=== PATIENT | male | born 1945 | race Caucasian/White ===

== ENCOUNTER 2020-06-22 07:42 | Outpatient (CLI) | payer MEDICARE, BC, OTHER ==
[2020-06-22 14:28] LABS: #Basophils 0.1 thou/uL (0.0-0.2); #Eosinphils 0.4 thou/uL (0.0-0.7); #Lymphocytes 1.6 thou/uL (1.20-3.40); #Monocytes 0.7 thou/uL (0.11-0.59); #Neutrophils 5.2 thou/uL (1.40-6.50); %Basophils 0.8 % (0.0-1.0); %Eosinophils 4.9 % (0.0-10.0); %Lymphocytes 20.4 % (21.0-51.0); Hemoglobin 11.8 g/dL (14.0-18.0); Mean Corpuscular HGB CONC 31.4 g/dL (32.0-36.0); Mean Corpuscular Hemoglobin 31.9 pg (27.0-31.0); Mean Platelet Volume 6.3 fL (7.4-10.4); Platelet Count 281 thou/uL (130-400); RBC Distribution Width 14.5 % (11.5-14.5); Red Blood Cell (RBC) Count 3.69 mill/uL (4.70-6.10); White Blood Cell (WBC) Count 8.1 thou/uL (4.8-10.8)
[2020-06-22 15:07] LABS: ALT (SGPT) 19 U/L (8-55); AST (SGOT) 17 U/L (5-34); Albumin 4.4 g/dL (3.4-4.8); Alkaline Phosphatase 79 U/L (40-110); Anion Gap 16 mmol/L (10-20); BUN (Urea Nitrogen) 33 mg/dL (8.4-25.7); Bilirubin, Total 0.5 mg/dL (0.2-1.2); Calc. Creatinine Clearance 0 mL/min (70-130); Calcium 9.9 mg/dL (7.8-10.44); Carbon Dioxide 23 mmol/L (23-31); Chloride 101 mmol/L (98-107); Estimated GFR-MDRD 42; Globulin 2.5 g/dL (2.4-3.5); Glucose 114 mg/dL (83-110); Protein, Total 6.9 g/dL (5.8-8.1); Sodium 136 mmol/L (136-145)
[2020-06-23 13:45] LABS: SARS-CoV-2 MS2 Positive; SARS-CoV-2 N Gene Negative; SARS-CoV-2 S Gene Negative; SARS-CoV-2 by NAA Not Detected (NotDetected); SARS-CoV-2 orf1ab Negative
== END 2020-06-22 07:43 | disposition home or self-care (01) ==
LOC: LABBT 07:42
PROVIDERS: ATTEND Internal Medicine Cardiovascular Disease
DX: Z01.812 Encounter for preprocedural laboratory examination (principal); Z20.828 Contact with and (suspected) exposure to other viral communicable diseases
CPT/HCPCS: 80053; 85025; U0003; 87635

== ENCOUNTER 2020-06-27 06:07 | Inpatient (IN) | payer MEDICARE, BC ==
[2020-06-27] MEDS ORDERED: Heparin 10,000 UNITS/ 10 ML VIAL ONE (06:29)
[2020-06-27] MEDS ORDERED: Fentanyl 100 MCG/2 ML VIAL ONE (06:59)
[2020-06-27] MEDS ORDERED: Midazolam HCl 2 mg/2 ml Vial ONE (06:59)
[2020-06-27 07:07] LABS: Cardiac Risk 3.5 (Less than 4.5)
[2020-06-27] MEDS ORDERED: Protamine Sulfate 50 MG/5 ML VIAL ONE (07:29)
[2020-06-27] MEDS ORDERED: Acetaminophen/Codeine 30-300mg Tablet PO PRN ×2 (08:20)
[2020-06-27] MEDS ORDERED: Nitroglycerin 0.4 MG TAB (25 Tab Bottle) SL PRN (08:20)
[2020-06-27] MEDS ORDERED: Sodium Chloride 0.9% 1,000 ML IV SCH (08:20)
[2020-06-27] MEDS ORDERED: Clobetasol 0.05% Cream 15 gm Tube FS SCH (08:30)
[2020-06-27] MEDS ORDERED: clonazePAM 0.5 MG TAB PO PRN (08:32)
[2020-06-27] MEDS ORDERED: Cyclobenzaprine 10 MG TAB PO PRN (08:33)
[2020-06-27] MEDS ORDERED: Fluticasone Propionate Nasal Spray 16 gm Bottle NASAL PRN (08:36)
[2020-06-27] MEDS ORDERED: hydrOXYzine 10 MG TAB PO PRN (08:45)
[2020-06-27 09:28] VITALS: BMI 40.7
[2020-06-27] MEDS: Multivitamin W/ Minerals 1 TAB PO SCH (10:58)
[2020-06-27] MEDS: FLUTAMIDE 125 MG PO SCH ×3 (10:58→21:07)
[2020-06-27] MEDS: Aspirin 81 mg Enteric Coated Tablet PO SCH (10:58)
[2020-06-27] MEDS: Citalopram 20 MG TAB PO SCH (10:59)
[2020-06-27] MEDS ORDERED: Iopamidol 370 76% 100 ML VIAL ONE (11:35)
[2020-06-27] MEDS: Sodium Chloride 0.9% 1,000 ML IV SCH (15:40)
[2020-06-27] MEDS: clonazePAM 0.5 MG TAB PO SCH (21:07)
[2020-06-27] MEDS: Atorvastatin Calcium 40 MG TAB PO SCH (21:07)
[2020-06-28] MEDS: FLUTAMIDE 125 MG PO SCH ×3 (09:01→20:17)
[2020-06-28] MEDS: Aspirin 81 mg Enteric Coated Tablet PO SCH (09:02)
[2020-06-28] MEDS: Citalopram 20 MG TAB PO SCH (09:02)
[2020-06-28] MEDS: Multivitamin W/ Minerals 1 TAB PO SCH (09:02)
[2020-06-28 09:05] LABS: Anion Gap 12 mmol/L (10-20); BUN (Urea Nitrogen) 29 mg/dL (8.4-25.7); Calc. Creatinine Clearance 84 mL/min (70-130); Calcium 10.1 mg/dL (7.8-10.44); Carbon Dioxide 26 mmol/L (23-31); Chloride 107 mmol/L (98-107); Estimated GFR-MDRD 50; Glucose 110 mg/dL (83-110); Sodium 141 mmol/L (136-145)
[2020-06-28] MEDS: Sodium Chloride 0.9% 1,000 ML IV SCH (12:24)
--- NOTE | 2020-06-28 19:59 | CON ---
DATE OF CONSULTATION: 06/28/2020 HISTORY OF PRESENT ILLNESS: Mr. Tran is a 74-year-old male, who has undergone cardiac catheterization. He has had complaints of shortness of breath. 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 He is to have a CT scan tomorrow. PFTs were done and I was consulted to review his PFTs. His FEV1 and FVC are reduced to a [id number] degree, but his mid flows are normal and his FEV1 ratios increased. He says he has lost over 10 pounds in the last week and with his low-carb high-protein diet and his weight loss, he can already tell that he is less short of breath with moving around. PAST MEDICAL HISTORY: Remarkable for; 1. Obesity. 2. History of prostate cancer, status post prostatectomy. 3. History of tonsillectomy. 4. History of vasectomy. 5. History of carpal tunnel surgery bilaterally. 6. History of bladder resection with conduit pouch. 7. History of reflux disease. 8. History of hypertension. 9. History of lipid disorder. 10. Degenerative arthritis. 11. History of sleep apnea. SOCIAL HISTORY: He smoked until 1975. He drinks occasionally. FAMILY HISTORY: Positive for cancer. Negative for lung disease in early age. Positive for hypertension. REVIEW OF SYSTEMS: Otherwise 10-point negative. PHYSICAL EXAMINATION: GENERAL: He is in no distress, very pleasant and cooperative. VITAL SIGNS: He is afebrile. Heart rate 77, respiratory rate is 18, oximetry is 96% on room air, blood pressure 124/61. HEENT: Pupils are equal. Sclerae are anicteric. NECK: Supple. LUNGS: Clear. HEART: Regular rhythm. S1, S2 are normal. ABDOMEN: Soft and nontender. EXTREMITIES: Without clubbing, cyanosis, or edema. NEURO: Grossly nonfocal. IMPRESSION AND PLAN: Restrictive abnormality on pulmonary function test, most likely secondary to abdominal obesity. I doubt he has a pulmonary cause of this. He is scheduled for CT scan, so I will look at his lung parenchyma tomorrow when he has his CT scan. Plan on seeing him again in 3 months and repeating a chest radiograph just to be sure unless he has dramatic improvement of his dyspnea with weight loss. I enjoyed my visit with him. This is a 50 min visit with greater than 50% of time spent on unit with coordination of care. Job ID: [id number] MTDD
[2020-06-28] MEDS ORDERED: Nitroglycerin 0.4 MG TAB (25 Tab Bottle) ONE (20:08)
[2020-06-28] MEDS: clonazePAM 0.5 MG TAB PO SCH (20:16)
[2020-06-28] MEDS: Atorvastatin Calcium 40 MG TAB PO SCH (20:17)
[2020-06-29 05:21] LABS: Anion Gap 13 mmol/L (10-20); BUN (Urea Nitrogen) 24 mg/dL (8.4-25.7); Calc. Creatinine Clearance 85 mL/min (70-130); Calcium 9.7 mg/dL (7.8-10.44); Carbon Dioxide 25 mmol/L (23-31); Chloride 106 mmol/L (98-107); Estimated GFR-MDRD 51; Glucose 104 mg/dL (83-110); Potassium 3.9 mmol/L (3.5-5.1); Sodium 140 mmol/L (136-145)
[2020-06-29] MEDS: Multivitamin W/ Minerals 1 TAB PO SCH (09:13)
[2020-06-29] MEDS: Aspirin 81 mg Enteric Coated Tablet PO SCH (09:13)
[2020-06-29] MEDS: Citalopram 20 MG TAB PO SCH (09:13)
[2020-06-29] MEDS: FLUTAMIDE 125 MG PO SCH ×3 (09:22→20:32)
[2020-06-29] MEDS ORDERED: Iopamidol 370 76% 100 ML VIAL ONE (13:42)
--- NOTE | 2020-06-29 16:00 | CT ---
CT angiogram of chest with contrast: (CT coronary angiogram) 06/29/2020 HISTORY: 74-year-old male with coronary artery disease and anomalous coronary artery anatomy. Evaluate detail of the anomaly. Cardiac catheterization has been performed, and degree of coronary arterial stenosis is already known by the ordering funeral home director. TECHNIQUE: Despite Smart prep technologist and used, targeting maximal IV contrast bolus at aortic root, the david ing of IV contrast was apparently missed, for unknown reasons. Patient reported pain at IV injection site, but there was no IV infiltration in the left upper extremity. Broker In Charge radiograph and CT images that shows the elbow and forearm, (not submitted to synapse) demonstrate no contrast material infiltrated in the soft tissues. Axial scan was repeated, without additional IV contrast. Patient was extremely claustrophobic (barely able to tolerate CT), with dyspnea, and with severe anxi ety. FINDINGS: Apparently because of tachycardia, there is motion artifact degrading fine detail evaluation of coron luis fernando arteries. The evaluation is further limited by lack of IV contrast on the images. There is no significant breathing motion artifact, because the visualized lung moya demonstrate good quality im ages, with no gross opacification or pulmonary edema visualized. No thoracic aortic aneurysm. No cardiomegaly or pericardial effusion. There is anomalous origin of the LM (LCA) very close to the origin of the RCA, from a short common tr unk that arises from the right sinus of Valsalva. This anomalous left main coronary artery travels between the aortic root and the root of the pulmonic trunk. The rest of the anatomy more distally is very poorly visualized because of motion (presumably tachyca rdia). There is atherosclerotic calcification of the RCA and LAD or its branches. 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
[2020-06-29] MEDS: clonazePAM 0.5 MG TAB PO SCH (20:34)
[2020-06-29] MEDS: Atorvastatin Calcium 40 MG TAB PO SCH (20:34)
[2020-06-30 04:59] LABS: Anion Gap 10 mmol/L (10-20); BUN (Urea Nitrogen) 18 mg/dL (8.4-25.7); Calc. Creatinine Clearance 93 mL/min (70-130); Calcium 9.5 mg/dL (7.8-10.44); Carbon Dioxide 26 mmol/L (23-31); Chloride 105 mmol/L (98-107); Estimated GFR-MDRD 56; Glucose 108 mg/dL (83-110); Potassium 3.7 mmol/L (3.5-5.1); Sodium 137 mmol/L (136-145)
[2020-06-30] MEDS: Sodium Chloride 0.9% 1,000 ML IV SCH (05:30)
[2020-06-30 07:03] VITALS: TEMP 98.2
[2020-06-30] MEDS: Citalopram 20 MG TAB PO SCH (08:24)
[2020-06-30] MEDS: Multivitamin W/ Minerals 1 TAB PO SCH (08:24)
[2020-06-30] MEDS: FLUTAMIDE 125 MG PO SCH (08:24)
[2020-06-30] MEDS: Aspirin 81 mg Enteric Coated Tablet PO SCH (08:24)
[2020-06-30 12:16] VITALS: BP 135/61
[2020-06-30] MEDS ORDERED: diphenhydrAMINE 25 MG CAP PO SCH (13:00)
--- NOTE | 2020-06-30 15:33 | CON ---
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 HISTORY OF PRESENT ILLNESS: Mr. Tran is a 74-year-old gentleman, who relates that approximately 2 months ago began having shortness of breath. This has progressed to where he is now having trouble doing usual activities without becoming short of breath. He was seen by Dr. Campbell and underwent stress testing, which showed an ejection fraction of 62%. On the stress portion of the PET scan, there was mild distal inferior wall ischemia. There were no EKG changes noted. 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 The left main coronary passes between the aorta and pulmonary artery. There is no compression. There is no calcification within the left main. Currently, he is resting comfortably. He says he already feels better after having seen Dr. Lara as an outpatient and being told he needs to lose weight. He has lost 10 pounds. He is now 283 pounds at 5 feet and 8 inches tall. PAST MEDICAL HISTORY: 1. Obesity. 2. History of prostate cancer, status post multiple procedures. He currently has a stoma with urinary drainage. 3. Hypertension. 4. GERD. 5. Dyslipidemia. 6. Degenerative joint disease. 7. Sleep apnea. PAST SURGICAL HISTORY: 1. Prostatectomy/cystectomy with ileal conduit. 2. Tonsillectomy. 3. Carpal tunnel. 4. Vasectomy. SOCIAL HISTORY: Quit smoking in 1975. He occasionally drinks alcohol. PHYSICAL EXAMINATION: GENERAL: This is a morbidly obese gentleman, resting in the chair, in his room without complaint. VITAL SIGNS: His temperature is 98.2, pulse is 80 and regular, and blood pressure is 135/61. LUNGS: Clear bilaterally. CARDIAC: Heart rhythm is regular. ABDOMEN: Soft. He has urinary stoma in the right lower quadrant. EXTREMITIES: There is mild edema and mild venous stasis changes peripherally. ASSESSMENT AND PLAN: I have reviewed all of his studies and discussed the patient with Dr. Campbell and Dr. Neely. 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 There was no compression noted on the angiograms and no calcification on the angiograms or CT scan. I am hard pressed to say that this is the cause of his shortness of breath without some evidence of anterior lateral wall ischemia, which we do not have on stress test. I have recommended that he continue with his [place] to lose weight and hopefully this will help with his shortness of breath. Job ID: [id number]
--- NOTE | 2020-07-01 00:26 | DIS ---
DATE OF ADMISSION: 06/27/2020 DATE OF DISCHARGE: 06/30/2020 DISCHARGE DIAGNOSES: 1. 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 2. 20% proximal RCA lesion. 3. Restrictive lung disease. 4. Hypoxemia with O2 sats in the 80s at home according to the patient; however, here his O2 saturation has been 93%. 5. Hypercholesterolemia with LDL of 73, changed from simvastatin to atorvastatin. 6. Hypertension. 7. Obesity. 8. Former smoker. 9. Chronic kidney disease with creatinine improving from 1.60 on admission to 1.25 at discharge despite two contrast loads. DISCHARGE DISPOSITION: The patient will be seen in 1 month with complete metabolic panel and fasting lipid profile. DISCHARGE MEDICATIONS: 1. Atorvastatin 40 mg q.a.m. 2. Celexa 40 mg daily. 3. Klonopin 0.5 mg p.r.n. 4. Flexeril 5 mg at bedtime. 5. Flutamide 250 mg t.i.d. 6. Flonase nasal spray. 7. Hydroxyzine 10 mg b.i.d. 8. Indomethacin 50 mg b.i.d. 9. Lisinopril and furosemide were being discontinued. HOSPITAL COURSE: Mr. Tran has been having increasing dyspnea on exertion even with a walking in the house. Nuclear scan showed distal inferior wall ischemia. He underwent cardiac catheterization, which revealed ejection fraction of 50% to 55 %. There was a 20% proximal RCA lesion. 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 He was admitted and hydrated for creatinine of 1.6, and furosemide and lisinopril were discontinued. After a full day of hydration, he underwent chest CTA for evaluation of the origin and the course of his left main. This revealed the left main to be coursing between the pulmonary artery and the aorta. Pulmonary function test was performed, which revealed an FVC of 65% and an FEV1 of 68%. He was seen by Dr. Villa Lloyd, who felt that at the age of 74 years that probably this would not be a big issue for him going forward. He was strongly urged to lose weight. His LDL was 73, and he was changed from simvastatin to atorvastatin 40 mg daily. Job ID: [id number] [facility]
--- NOTE | 2020-07-03 07:36 | PQF ---
CLINICAL DOCUMENTATION CLARIFICATION FORM: Dear : Eusebio Campbell Date / Time: 07/03/2020 07:35 Please exercise your independent, professional judgment in responding to the clarification form. Clinical indicators are provided on the bottom of this form for your review Can you please clarify the respiratory status of the patient? Please check appropriate box(es): [ ] Acute hypoxic respiratory failure [ ] Hyoxia only [ x ] Other diagnosis chronic kidney disease. Hypoxia reported at home, not documented here. [ ] Unable to determine Physician Signature: Eusebio Campbell MD Date/Time: 07/04/20, 1310 For continuity of documentation, please document condition throughout progress notes and discharge summary. Thank You. To be completed by CDI/Coding staff for physician review: Present Clinical Indicators - Signs / Symptoms / Labs Results and Location in Medical Record [x] hypoxemia with 02 sat 80 DS 06/30 [x] complains of SOB Consult 06/28 [x] Chest Xray:no acute abnormalities Chest Xray 06/29 [x] O2 sat: 06/27=93 06/28=92 06/30=93 Vital Signs 06/27 Present Risk Factors Results and Location in Medical Record [x] 74 years old male Consult 06/28 [x] Obesity Consult 06/28 [x] Former Smoker Consult 06/28 [x] Sleep apnea Consult 06/30 [x] Restirctive lung disease DS 06/30 [x] Anomalous origin of coronary artery DS 06/30 Present Treatments Results and Location in Medical Record [x] LHC Collected 06/27 [x] Chest Xray Collected 06/29 [x] Oxygen via NC Vital Signs 06/27 [x] Pulmonology Consult Consult 06/28 CDS/Firer Helper Signature: Nakita Gillis Phone #: [phone] Date/Time:07/03/20 07:35 Acute Respiratory Failure: ABG pH < 7.35 or > 7.45; Decreased oxygen saturation (<90% room air or < 95% on oxygen); PCO2 > 50 mm Hg; PO2 < 60 mm Hg; Labored or rapid respirations ARDS: Dx Criteria [[place] ARDS]: Respiratory symptoms within one week of a known clinical insult (e.g. shock, infection, surgery, trauma) Bilateral opacities in CXR/Chest CT not due to CHF or fluid This is a permanent part of the Medical Record [facility]
== END 2020-06-30 15:15 | disposition home or self-care (01) | DRG 287 ==
LOC: CCL 06:07 → OBSVTOIN 08:06 → 2SW 08:06 → 2NO 06-28 17:47
PROVIDERS: ADMIT Internal Medicine Cardiovascular Disease; ATTEND Internal Medicine Cardiovascular Disease
PROC: 4A023N7 Measurement of Cardiac Sampling and Pressure, Left Heart, Percutaneous Approach (ICD-10-PCS; principal; 2020-06-27)
PROC: B2111ZZ Fluoroscopy of Multiple Coronary Arteries using Low Osmolar Contrast (ICD-10-PCS; 2020-06-27)
PROC: B2151ZZ Fluoroscopy of Left Heart using Low Osmolar Contrast (ICD-10-PCS; 2020-06-27)
PROC: 4A033BC Measurement of Arterial Pressure, Coronary, Percutaneous Approach (ICD-10-PCS; 2020-06-27)
PROC: 3E02340 Introduction of Influenza Vaccine into Muscle, Percutaneous Approach (ICD-10-PCS; 2020-06-28)
DX: Q24.5 Malformation of coronary vessels (principal); Z68.41 Body mass index [BMI] 40.0-44.9, adult; E78.5 Hyperlipidemia, unspecified; Z23 Encounter for immunization; G47.30 Sleep apnea, unspecified; M19.90 Unspecified osteoarthritis, unspecified site; K21.9 Gastro-esophageal reflux disease without esophagitis; F32.9 Major depressive disorder, single episode, unspecified; F41.9 Anxiety disorder, unspecified; E78.00 Pure hypercholesterolemia, unspecified; E66.9 Obesity, unspecified; N18.9 Chronic kidney disease, unspecified; I12.9 Hypertensive chronic kidney disease with stage 1 through stage 4 chronic kidney disease, or unspecified chronic kidney disease; J98.4 Other disorders of lung; Z87.442 Personal history of urinary calculi; Z86.73 Personal history of transient ischemic attack (TIA), and cerebral infarction without residual deficits; Z85.46 Personal history of malignant neoplasm of prostate; Z87.891 Personal history of nicotine dependence; Z88.2 Allergy status to sulfonamides; Z79.899 Other long term (current) drug therapy
CPT/HCPCS: 36415; 36600; 71275; 80048; 80061; 85347; 90471; 90732; 93458; 94010; 99152; 99153; G0009; G0378; J1644; J2250; J2720; J3010; Q0163; Q9967

== ENCOUNTER 2020-08-07 19:30 | Outpatient (CLI) | payer MEDICARE, BC | END 2020-08-07 19:31 | disposition home or self-care (01) | LOC: SLEEPLAB 19:30 | PROVIDERS: ATTEND Internal Medicine Critical Care Medicine | DX: G47.33 Obstructive sleep apnea (adult) (pediatric) (principal); R06.83 Snoring; G47.10 Hypersomnia, unspecified; R09.02 Hypoxemia; E66.9 Obesity, unspecified; Z68.39 Body mass index [BMI] 39.0-39.9, adult | CPT/HCPCS: 95811 ==

== ENCOUNTER 2022-11-21 06:02 | Day surgery (SDC) | payer MEDICARE, BC ==
[2022-11-20 12:13] VITALS: BMI 38.0
[2022-11-21] MEDS ORDERED: Acetaminophen 500 MG TAB ONE (06:27)
[2022-11-21] MEDS ORDERED: Bupivacaine/Epinephrine 0.25% 30 ML VIAL ONE (06:33)
[2022-11-21] MEDS ORDERED: Lidocaine 1% MPF 2 ML VIAL ONE (07:14)
[2022-11-21] MEDS ORDERED: fentaNYL PF 100 MCG/2 ML SYRINGE ONE (07:20)
[2022-11-21] MEDS ORDERED: SUGAMMADEX SODIUM 200 MG/2 ML VIAL ONE (07:21)
[2022-11-21] MEDS ORDERED: Propofol 500 MG/50 ML VIAL ONE (07:21)
[2022-11-21] MEDS ORDERED: Sodium Chloride 0.9% 100 ML ONE (07:31)
[2022-11-21] MEDS ORDERED: CEFAZOLIN 2 GM VIAL ONE (07:31)
[2022-11-21] MEDS ORDERED: Ketorolac Tromethamine 30 MG/ML VIAL ONE (07:38)
[2022-11-21] MEDS ORDERED: Dexamethasone 20 MG/5 ML VIAL ONE (07:53)
[2022-11-21] MEDS ORDERED: Glycopyrrolate 0.2 MG/ML 5 ML SYRINGE ONE (07:53)
[2022-11-21] MEDS ORDERED: Albuterol HFA (OR) 200 PUFF INH ONE ×2 (07:53)
[2022-11-21] MEDS ORDERED: PROPOFOL 200 MG/20 ML VIAL ONE (07:53)
[2022-11-21] MEDS ORDERED: Rocuronium Bromide 10 MG/ML (10ML VIAL) ONE (07:53)
[2022-11-21] MEDS ORDERED: Lidocaine 1% PF 5 ML VIAL ONE (07:53)
[2022-11-21] MEDS ORDERED: ePHEDrine 50 MG/ML VIAL ONE (07:53)
[2022-11-21] MEDS ORDERED: Fentanyl 100 MCG/2 ML VIAL ONE (10:22)
== END 2022-11-21 13:53 | disposition home or self-care (01) ==
LOC: SDC 06:02
PROVIDERS: ATTEND Specialist
PROC: 0FT44ZZ Resection of Gallbladder, Percutaneous Endoscopic Approach (ICD-10-PCS; principal; 2022-11-21)
DX: K80.10 Calculus of gallbladder with chronic cholecystitis without obstruction (principal); K82.8 Other specified diseases of gallbladder; K66.0 Peritoneal adhesions (postprocedural) (postinfection); I10 Essential (primary) hypertension; E78.5 Hyperlipidemia, unspecified; M19.90 Unspecified osteoarthritis, unspecified site; E66.3 Overweight; Z68.39 Body mass index [BMI] 39.0-39.9, adult; Z85.46 Personal history of malignant neoplasm of prostate; Z87.891 Personal history of nicotine dependence; Z79.2 Long term (current) use of antibiotics; Z79.899 Other long term (current) drug therapy; Z88.2 Allergy status to sulfonamides; Z93.6 Other artificial openings of urinary tract status
CPT/HCPCS: 88304; C1889; J1100; J1885; J2704; J3010; J3490

== ENCOUNTER 2023-07-09 14:53 | Outpatient (CLI) | payer MEDICARE, BC | END 2023-07-09 14:54 | disposition home or self-care (01) | LOC: BICMAMMO 14:53 | PROVIDERS: ATTEND Internal Medicine | DX: M81.0 Age-related osteoporosis without current pathological fracture (principal) | CPT/HCPCS: 77080 ==

== ENCOUNTER 2024-04-28 11:02 | Outpatient (CLI) | payer MEDICARE ==
[2024-04-28 12:15] LABS: Hemoglobin 10.7 g/dL (13.5-17.5); Mean Corpuscular HGB CONC 32.4 g/dL (32.0-36.0); Mean Corpuscular Hemoglobin 33.1 pg (27.0-33.0); Mean Corpuscular Volume 102.2 fL (81.2-95.1); Mean Platelet Volume 8.8 fL (7.4-10.4); Platelet Count 172 10x3/uL (150-450); RBC Distribution Width 13.8 % (11.5-14.5); Red Blood Cell (RBC) Count 3.23 10x6/uL (4.32-5.72); White Blood Cell (WBC) Count 8.4 10x3/uL (3.5-10.5)
[2024-04-28 12:16] LABS: PTT 28.2 sec (22.0-33.0); Prothrombin Time 10.7 sec (9.5-12.1)
[2024-04-28 12:17] LABS: Anion Gap 11 mmol/L (10-20); BUN (Urea Nitrogen) 36 mg/dL (8.4-25.7); Calc. Creatinine Clearance 0 mL/min (70-130); Calcium 9.8 mg/dL (7.8-10.44); Carbon Dioxide 29 mmol/L (23-31); Chloride 105 mmol/L (98-107); Estimated GFR 57; Glucose 100 mg/dL (83-110); Potassium 4.5 mmol/L (3.5-5.1); Sodium 140 mmol/L (136-145)
== END 2024-04-28 11:03 | disposition home or self-care (01) ==
LOC: LABBT 11:02
PROVIDERS: ATTEND Neurological Surgery
DX: Z01.812 Encounter for preprocedural laboratory examination (principal); M47.12 Other spondylosis with myelopathy, cervical region; M50.20 Other cervical disc displacement, unspecified cervical region
CPT/HCPCS: 80048; 85027; 85610; 85730